=== PATIENT | male | born 1995 | race Caucasian/White ===

== ENCOUNTER 2017-02-16 19:45 | Emergency (ER) | payer OTHER ==
[2017-02-16 20:04] VITALS: BP 136/81; PULSE 89; TEMP 98.4; BMI 26.6
--- NOTE | 2017-02-16 23:37 | PDOC ---
History of Present Illness - General Chief Complaint: Pain Stated Complaint: LT SIDE LOWER ABD PAIN Time Seen by Provider: 02/16/17 22:36 History Source: Patient Exam Limitations: No Limitations - History of Present Illness Travel History: No Initial Comments: 02/16/17 23:43 21-year-old male presents to the emergency department complaining of left-sided groin pain 3 days after lifting a heavy object. Patient says he had a left- sided inguinal hernia which was repaired 10 years ago back in the [place]. Timing/Duration: reports: intermittent Quality: reports: dullness Abdominal Pain Onset Location: reports: suprapubic (left) Pain Radiation: reports: no radiation Past History - Past Medical History Allergies/Adverse Reactions: Allergies Allergy/AdvReac Type Severity Reaction Status Date / Time ampicillin Allergy Verified 02/16/17 20:00 - Psycho/Social/Smoking Cessation Hx Suicidal Ideation: No Smoking History: Never smoked *Physical Exam - Vital Signs Last Vital Signs Temp Pulse Resp BP Pulse Ox 98.4 F 89 18 136/81 99 02/16/17 20:00 02/16/17 20:00 02/16/17 20:00 02/16/17 20:00 02/16/17 20:00 ED Treatment Course - RADIOLOGY Radiograph Interpretation: 02/17/17 01:26 Normal appearance of both testes. Epididymal cysts noted on the right. Otherwise normal appearance of both epididymitis. Normal vascular flow seen bilaterally. Trace right hydrocele. Small pocket of fluid noted on the left. No varicocele. *DC/Admit/Observation/Transfer Diagnosis at time of Disposition: Lt groin pain, Hydrocele in adult - Discharge Dispostion Disposition: HOME Condition at time of disposition: Stable Admit: No - Referrals Referrals: Minh Hassan MD [Primary Care Provider] - - Patient Instructions Printed Discharge Instructions: DI for Hydrocele-Adult, DI for Groin Strain Additional Instructions: Tylenol/Motrin as needed for pain Rest Avoid heavy lifting Follow up with the Urologist Return to the ER for severe/persistent/worsening symptoms - Post Discharge Activity Work/School Note: Back to Work
== END 2017-02-17 01:44 | disposition home or self-care (01) ==
LOC: JER 19:45
DX: S39.011A Strain of muscle, fascia and tendon of abdomen, initial encounter (principal); N43.3 Hydrocele, unspecified; X50.0XXA Overexertion from strenuous movement or load, initial encounter; X50.9XXA Other and unspecified overexertion or strenuous movements or postures, initial encounter; Y93.89 Activity, other specified; Y92.89 Other specified places as the place of occurrence of the external cause
CPT/HCPCS: 76870-TC; 99281-25

== ENCOUNTER 2017-06-25 17:11 | Inpatient (IN) | payer OTHER ==
[2017-06-25 17:17] VITALS: BMI 26.6
[2017-06-25] MEDS ORDERED: ONDANSETRON 4 MG/2 ML VIAL IVPB ONE (19:34)
[2017-06-25] MEDS ORDERED: FAMOTIDINE 20 MG/50 ML IVPB 50 ML IVPB ONE ×2 (19:34→20:05)
[2017-06-25] MEDS ORDERED: SODIUM CHLORIDE 1,000 ML IV STA (19:34)
--- NOTE | 2017-06-25 19:39 | PDOC ---
History of Present Illness - General Chief Complaint: Pain, Acute Stated Complaint: PAIN, ACUTE Time Seen by Provider: 06/25/17 18:48 History Source: Patient - History of Present Illness Initial Comments: 06/25/17 19:34 22-year-old male complaining of vomiting more than 10 times and diarrhea today. Patient reports eating outside yesterday. Patient reports generalized abdominal pain. Denies headache, chest pain, shortness of breath, urinary symptoms. No past medical history ALLERGIES to penicillin Past History - Past Medical History Allergies/Adverse Reactions: Allergies Allergy/AdvReac Type Severity Reaction Status Date / Time ampicillin Allergy Verified 06/25/17 17:14 Home Medications: Ambulatory Orders NK [No Known Home Medication] 06/25/17 Other medical history: Denies - Surgical History Other Surgical History: 06/26/17 00:57 left inguinal hernia repair - Immunization History Immunization Up to Date: Yes - Suicide/Smoking/Psychosocial Hx Smoking History: Never smoked Have you smoked in the past 12 months: No Information on smoking cessation initiated: No Hx Alcohol Use: No Drug/Substance Use Hx: No Substance Use Type: Alcohol Review of Systems - Review of Systems Able to Perform ROS?: Yes Is the patient limited [place] proficient: No Constitutional: No: Symptoms Reported, See HPI, Chills, Diaphoresis, Fever, Loss of Appetite, Malaise, Night Sweats, Weakness, Weight Stable, Unintentional Wgt. Loss, Unexplained wgt Loss, Other Respiratory: No: Symptoms reported, See HPI, Cough, Orthopnea, Shortness of Breath, SOB with Exertion, SOB at Rest, Stridor, Wheezing, Productive cough, Hemoptysis, Other Cardiac (ROS): No: Symptoms Reported, See HPI, Chest Pain, Edema, Irregular Heart Rate, Lightheadedness, Palpitations, Syncope, Chest Tightness, Other ABD/GI: Yes: Diarrhea, Nausea, Vomiting, Abdominal cramping. No: Symptoms Reported, See HPI, Abdominal Distended, Abd. Pain w/ defecation, Blood Streaked Bowels, Constipated, Difficulty Swallowing, Poor Appetite, Poor Fluid Intake, Rectal Bleeding, Indigestion, Tarry Stools, Other : No: Symptoms Reported, See HPI, Burning, Dysuria, Discharge, Frequency, Flank Pain, Hematuria, Incontinence, Pain, Urgency, Testicular Mass, Testicular Swelling, Lesions, Testicular Pain, Other *Physical Exam - Vital Signs Last Vital Signs Temp Pulse Resp BP Pulse Ox 97.8 F 93 H 14 130/87 97 06/25/17 17:14 06/25/17 17:14 06/25/17 17:14 06/25/17 17:14 06/25/17 17:14 - Physical Exam General Appearance: Yes: Appropriately Dressed Respiratory/Chest: positive: Lungs Clear, Normal Breath Sounds Cardiovascular: positive: Regular Rhythm, Regular Rate Gastrointestinal/Abdominal: positive: Normal Bowel Sounds, Tender (mild RLQ tenderness), Soft Integumentary: positive: Normal Color, Dry, Warm Neurologic: positive: Fully Oriented, Alert ED Treatment Course - LABORATORY CBC & Chemistry Diagram: 06/25/17 20:12 06/25/17 20:12 Progress Note - Progress Note Progress Note: A: abdominal pain / gastroenteritis vs appendicitis? P: CBC CMP UA IVF Zofran Pepcid reevaluate Medical Decision Making - Medical Decision Making 06/25/17 21:35 continues with RLQ pain. will CT to rule out acute appendicitis. 06/26/17 00:43 CTAP: acute appendicitis 06/26/17 00:47 06/26/17 01:22 Dr. hoffman paged x2. will give ceftriaxone/ flagyl. patient signed out Dr. Kirkpatrick / Jerri for further management of care. *DC/Admit/Observation/Transfer Diagnosis at time of Disposition: Appendicitis Qualifiers: Appendicitis type: acute appendicitis Acute appendicitis type: unspecified acute appendicitis type Qualified Code(s): K35.80 - Unspecified acute appendicitis - Discharge Dispostion Admit: Yes - Referrals Referrals: Minh Hassan MD [Primary Care Provider] -
[2017-06-25] MEDS ORDERED: ONDANSETRON 4 MG/2 ML VIAL ONE (20:05)
[2017-06-25 20:24] LABS: BASOPHIL 0.1 % (0-2.0); MCH 25.7 pg (25.7-33.7); MCHC 33.4 g/dl (32.0-35.9); MEAN CELL VOLUME 77.1 fl (80-96); MEAN PLT VOLUME 8.1 fl (7.5-11.1); PLATELET COUNT 260 K/MM3 (134-434); RDW 13.5 % (11.9-15.9); WHITE BLOOD COUNT 16.8 K/mm3 (4.0-10.0)
[2017-06-25 20:35] LABS: URINE APPEARANCE CLOUDY; URINE BILIRUBIN NEGATIVE (NEGATIVE); URINE BLOOD NEGATIVE (NEGATIVE); URINE COLOR AMBER; URINE GLUCOSE (UA) NEGATIVE (NEGATIVE); URINE KETONE 2+ (NEGATIVE); URINE LEUK ESTERASE NEGATIVE (NEGATIVE); URINE NITRITE NEGATIVE (NEGATIVE); URINE UROBILINOGEN NEGATIVE mg/dL (0.2-1.0)
[2017-06-25 20:37] LABS: URINE PROTEIN 2+ (NEGATIVE)
[2017-06-25 20:41] LABS: URINE MUCUS MANY; URINE RBC 1 /hpf (0-3); URINE WBC 2 /hpf (3-5)
[2017-06-25] MEDS ORDERED: SODIUM CHLORIDE 0.9% 500 ML INFUS.BAG IV ONE (21:36)
[2017-06-25 21:39] LABS: ALBUMIN 4.5 g/dl (3.4-5.0); ALK PHOS 129 U/L (45-117); ANION GAP 7 (8-16); BILIRUBIN,TOTAL 0.5 mg/dL (0.2-1.0); CALCIUM 9.4 mg/dL (8.5-10.1); CO2 30 mmol/L (21-32); GLUCOSE,RANDOM 107 mg/dL (74-106); SGOT/AST 17 U/L (15-37); SGPT/ALT 28 U/L (12-78); TOT PROT 8.1 g/dl (6.4-8.2)
[2017-06-26] MEDS ORDERED: DEXTROSE 5%-0.45% SALINE 1,000 ML IV SCH (01:00)
--- NOTE | 2017-06-26 01:12 | PN ---
Teaching Attending Note Name of Resident: [place]l ATTENDING PHYSICIAN STATEMENT I saw and evaluated the patient. I reviewed the resident's note and discussed the case with the resident. I agree with the resident's findings and plan as documented. SUBJECTIVE: 22 yo m with no pmhx. who presents with vomting >10X and diarrhea. States his abdominal pain is diffuse. No chest pain, pressure or shortness of breath, OBJECTIVE: Physical: VS: Vital Signs Period Temp Pulse Resp BP Sys/Miranda Pulse Ox Last 24 Hr 97.8 F 93 14 130/87 97 Upon my Exam HR 112, Febrile 101 Tm GEN: NAD, resting in bed HEENT: NCAT, PERRL, Throat without erythema or exudates CARD: Stach RRR S1, S2 RESP: CTAB ABD: BSx4, TTP RLQ, NON- Distended EXT: - C/C/E CBCD WBC 16.8 K/mm3 (4.0-10.0) H 06/25/17 20:12 RBC 5.62 M/mm3 (4.00-5.60) H 06/25/17 20:12 Hgb 14.4 GM/dL (11.7-16.9) 06/25/17 20:12 Hct 43.3 % (35.4-49) 06/25/17 20:12 MCV 77.1 fl (80-96) L 06/25/17 20:12 MCHC 33.4 g/dl (32.0-35.9) 06/25/17 20:12 RDW 13.5 % (11.9-15.9) 06/25/17 20:12 Plt Count 260 K/MM3 (134-434) 06/25/17 20:12 MPV 8.1 fl (7.5-11.1) 06/25/17 20:12 CMP Sodium 136 mmol/L (136-145) 06/25/17 20:12 Potassium 4.4 mmol/L (3.5-5.1) 06/25/17 20:12 Chloride 99 mmol/L (98-107) 06/25/17 20:12 Carbon Dioxide 30 mmol/L (21-32) 06/25/17 20:12 Anion Gap 7 (8-16) L 06/25/17 20:12 BUN 8 mg/dL (7-18) 06/25/17 20:12 Creatinine 1.0 mg/dL (0.7-1.3) 06/25/17 20:12 Creat Clearance w eGFR > 60 (>60) 06/25/17 20:12 Random Glucose 107 mg/dL (74-106) H 06/25/17 20:12 Calcium 9.4 mg/dL (8.5-10.1) 06/25/17 20:12 Total Bilirubin 0.5 mg/dL (0.2-1.0) 06/25/17 20:12 AST 17 U/L (15-37) 06/25/17 20:12 ALT 28 U/L (12-78) 06/25/17 20:12 Alkaline Phosphatase 129 U/L (45-117) H 06/25/17 20:12 Total Protein 8.1 g/dl (6.4-8.2) 06/25/17 20:12 Albumin 4.5 g/dl (3.4-5.0) 06/25/17 20:12 CT AP- Acute Appendicitis ASSESSMENT AND PLAN: 22 M with no pmhx who presents with abdominal pain, found to have sepsis secondary to acute Appendicitis 1.) Sepsis most likley due to Acute appendicitis/acute gastro/c.diff - NPO - Mejia cx, Repeat LA - C.Diff/Stool cx - IVF - Ceftriaxone/Flagyl given in ED, can switch to Zosyn tomorrow (Pt. States he has NO PCN allergy) - Sx consult - Coags/cbc - EKG/CXR 2.) Dvt Ppx - Low Risk - Scd Place in Med-Sx
[2017-06-26] MEDS ORDERED: METRONIDAZOLE 500 MG PREMIXED 100 ML IVPB ONE (01:22)
[2017-06-26] MEDS ORDERED: CEFTRIAXONE 1,000 MG in DEXTROSE 5%-WATER - 50 ML IVPB ONE (01:22)
--- NOTE | 2017-06-26 01:28 | HP ---
Admitting History and Physical - Admission History of Present Illness: 22yo M with no significant PMH presents c/o diffuse abdominal pain x 1 day. Patient in usualy state of health until this morning when he started experiencing 8/10 LLQ ABD which then moved to the periumbilical region eventually the RLQ started to become painful and that is where the pain has stayed. Pain is worse when he moves such as during the vare ride to the hospital. Pt denies ever having symptoms like this before. Patient reports fevers & chills. CTAP in ED notable for acute appendicitis History Source: Patient Limitations to Obtaining History: No Limitations - Past Medical History Additional Past Medical History: denies - Smoking History Smoking history: Never smoked Have you smoked in the past 12 months: No - Alcohol/Substance Use Hx Alcohol Use: No Home Medications - Allergies Allergies/Adverse Reactions: Allergies Allergy/AdvReac Type Severity Reaction Status Date / Time ampicillin Allergy Verified 06/25/17 17:14 - Home Medications Home Medications: Ambulatory Orders NK [No Known Home Medication] 06/25/17 Review of Systems - Review of Systems Constitutional: reports: Chills, Fever, Loss of Appetite Eyes: reports: No Symptoms HENT: reports: No Symptoms Neck: reports: No Symptoms Cardiovascular: reports: No Symptoms Respiratory: reports: No Symptoms Gastrointestinal: reports: Abdominal Pain, Diarrhea, Nausea, Vomiting Genitourinary: reports: No Symptoms Physical Examination Vital Signs: Vital Signs Temperature 97.8 F 06/25/17 17:14 Pulse Rate 93 H 06/25/17 17:14 Respiratory Rate 14 06/25/17 17:14 Blood Pressure 130/87 06/25/17 17:14 O2 Sat by Pulse Oximetry (%) 97 06/25/17 17:14 Constitutional: Yes: Well Nourished, No Distress, Calm Eyes: Yes: Conjunctiva Clear HENT: Yes: Atraumatic, Normocephalic Neck: Yes: Trachea Midline Cardiovascular: Yes: Tachycardia, S1, S2 Respiratory: Yes: CTA Bilaterally Gastrointestinal: Yes: Soft, Tenderness (RLQ and epigastrium no rebound + Rovsings negative psoas sign or obturator sign) Edema: No Integumentary: Yes: Other (skin was hot to touch) Neurological: Yes: Alert, Oriented Labs: CBC, BMP 06/25/17 20:12 06/25/17 20:12 Imaging - Results Cat Scan: Image Reviewed Assessment/Plan 22M with abdominal pain found to have acute appendicitis Problem list: Acute appendicitis Sepsis Plan: Admit to med/surg surgery consult ceftriaxone/flagyl Surgery consult NPO IVF lactic acid antipyretics stool cultures ova and parasites c diff patient unsure about PCN allergy consider zosyn in AM Case discussed with attending and admitting international sourcing manager Full H&P to follow Visit type - Emergency Visit Emergency Visit: Yes ED Registration Date: 06/26/17 Care time: The patient presented to the Emergency Department on the above date and was hospitalized for further evaluation of their emergent condition. - New Patient This patient is new to me today: Yes Date on this admission: 06/26/17 - Critical Care Critical Care patient: No
[2017-06-26] MEDS ORDERED: SODIUM CHLORIDE 1,000 ML IV STA (01:42)
[2017-06-26] MEDS ORDERED: CEFTRIAXONE 50 ML ONE (01:44)
[2017-06-26] MEDS ORDERED: SODIUM CHLORIDE 1,000 ML IV SCH (01:45)
[2017-06-26 02:09] LABS: INR 1.47 (0.82-1.09); PROTHROMBIN TIME (PATIENT) 16.3 SEC (9.98-11.88)
[2017-06-26 02:11] LABS: ACTIVATED PTT 33.4 SECONDS (26.9-34.4)
--- NOTE | 2017-06-26 02:38 | HP ---
CHIEF COMPLAINT: abdominal pain PCP: Dr. Juan Carlos Reilly HISTORY OF PRESENT ILLNESS: 22yo M with no significant PMH presents c/o diffuse abdominal pain x 1 day. Pain started this morning in LLQ, moved to RLQ and periumbilical area. Pt took Peptobismol which did not relieve the pain. Pain is worse with movement. Pain is constant, currently rated 8/10. Pt denies ever having symptoms like this before. Pt reports 4 episodes of nbnb vomiting this morning and 6 episodes of watery diarrhea throughout the day. Pt also reports subjective fever. Pt denies chest pain, palpitations, sob. ER course was notable for: (1) Zofran, Pepcid, NS 1 L bolus x 2 (2) Flagyl, Ceftriaxone (3) Ab/Pelvis CT - suggesting acute appendicitis PAST MEDICAL HISTORY: denies PAST SURGICAL HISTORY: Left inguinal hernia repair 10 yrs ago Social History: Smoking: never Alcohol: denies Drugs: denies Family History: several family members have had appendectomies Allergies ampicillin Allergy (Verified 06/25/17 17:14) HOME MEDICATIONS: Home Medications Medication Instructions Recorded NK [No Known Home Medication] 06/25/17 REVIEW OF SYSTEMS CONSTITUTIONAL: Present: fever Absent: chills, diaphoresis, generalized weakness, malaise, loss of appetite, weight change HEENT: Absent: rhinorrhea, nasal congestion, visual changes CARDIOVASCULAR: Absent: chest pain, palpitations, irregular heart rate, lightheadedness, peripheral edema RESPIRATORY: Absent: cough, shortness of breath, wheezing, stridor GASTROINTESTINAL: Present: abdominal pain, vomiting and diarrhea resolved Absent: abdominal distension, nausea, constipation, melena, hematochezia GENITOURINARY: Absent: dysuria, frequency, urgency, hesitancy SKIN: Absent: rash, itching, pallor HEMATOLOGIC/IMMUNOLOGIC: Absent: easy bleeding, easy bruising NEUROLOGIC: Absent: headache, focal weakness or paresthesias, dizziness, unsteady gait PHYSICAL EXAMINATION Last Vital Signs Temp Pulse Resp BP Pulse Ox 97.8 F 93 H 14 130/87 97 06/25/17 17:14 06/25/17 17:14 06/25/17 17:14 06/25/17 17:14 06/25/17 17:14 GENERAL: Awake, alert, and fully oriented, in mild distress. HEAD: Normal with no signs of trauma. EYES: Extraocular movements intact, sclera anicteric, conjunctiva clear. No lid lag. EARS, NOSE, THROAT: Moist mucous membranes. NECK: Normal range of motion, supple, trachea midline. LUNGS: Breath sounds equal, clear to auscultation bilaterally. No wheezes, and no crackles. No accessory muscle use. HEART: Regular rhythm, tachycardia, normal S1 and S2 without murmur, rub or gallop. ABDOMEN: diffuse tenderness to palpation, + McBurney's sign, -rebound, -psoas sign. Soft, not distended, normoactive bowel sounds, no guarding, MUSCULOSKELETAL: Normal range of motion at all joints. No bony deformities or tenderness. LOWER EXTREMITIES: Warm, well-perfused. No calf tenderness. No peripheral edema. NEUROLOGICAL: Normal speech. Normal gait. PSYCHIATRIC: Cooperative. Good eye contact. Appropriate mood and affect. SKIN: Warm, dry, normal turgor, no rashes or lesions noted. Laboratory Last Values WBC 16.8 K/mm3 (4.0-10.0) H 06/25/17 20:12 RBC 5.62 M/mm3 (4.00-5.60) H 06/25/17 20:12 Hgb 14.4 GM/dL (11.7-16.9) 06/25/17 20:12 Hct 43.3 % (35.4-49) 06/25/17 20:12 MCV 77.1 fl (80-96) L 06/25/17 20:12 MCH 25.7 pg (25.7-33.7) 06/25/17 20:12 MCHC 33.4 g/dl (32.0-35.9) 06/25/17 20:12 RDW 13.5 % (11.9-15.9) 06/25/17 20:12 Plt Count 260 K/MM3 (134-434) 06/25/17 20:12 MPV 8.1 fl (7.5-11.1) 06/25/17 20:12 Neutrophils % 88.0 % (42.8-82.8) H 06/25/17 20:12 Lymphocytes % 2.1 % (8-40) L 06/25/17 20:12 Monocytes % 9.8 % (3.8-10.2) 06/25/17 20:12 Eosinophils % 0.0 % (0-4.5) 06/25/17 20:12 Basophils % 0.1 % (0-2.0) 06/25/17 20:12 PT with INR 16.30 SEC (9.98-11.88) H 06/26/17 01:48 INR 1.47 (0.82-1.09) H 06/26/17 01:48 PTT (Actin FS) 33.4 SECONDS (26.9-34.4) 06/26/17 01:48 Sodium 136 mmol/L (136-145) 06/25/17 20:12 Potassium 4.4 mmol/L (3.5-5.1) 06/25/17 20:12 Chloride 99 mmol/L (98-107) 06/25/17 20:12 Carbon Dioxide 30 mmol/L (21-32) 06/25/17 20:12 Anion Gap 7 (8-16) L 06/25/17 20:12 BUN 8 mg/dL (7-18) 06/25/17 20:12 Creatinine 1.0 mg/dL (0.7-1.3) 06/25/17 20:12 Creat Clearance w eGFR > 60 (>60) 06/25/17 20:12 Random Glucose 107 mg/dL (74-106) H 06/25/17 20:12 Calcium 9.4 mg/dL (8.5-10.1) 06/25/17 20:12 Total Bilirubin 0.5 mg/dL (0.2-1.0) 06/25/17 20:12 AST 17 U/L (15-37) 06/25/17 20:12 ALT 28 U/L (12-78) 06/25/17 20:12 Alkaline Phosphatase 129 U/L (45-117) H 06/25/17 20:12 Total Protein 8.1 g/dl (6.4-8.2) 06/25/17 20:12 Albumin 4.5 g/dl (3.4-5.0) 06/25/17 20:12 Lipase 141 U/L (73-393) 06/25/17 20:12 Urine Color Lee Ann 06/25/17 20:15 Urine Appearance Cloudy 06/25/17 20:15 Urine pH 6.0 (5.0-8.0) 06/25/17 20:15 Ur Specific Pandora 1.025 (1.005-1.025) 06/25/17 20:15 Urine Protein 2+ (NEGATIVE) H 06/25/17 20:15 Urine Glucose (UA) Negative (NEGATIVE) 06/25/17 20:15 Urine Ketones 2+ (NEGATIVE) H 06/25/17 20:15 Urine Blood Negative (NEGATIVE) 06/25/17 20:15 Urine Nitrite Negative (NEGATIVE) 06/25/17 20:15 Urine Bilirubin Negative (NEGATIVE) 06/25/17 20:15 Urine Urobilinogen Negative mg/dL (0.2-1.0) 06/25/17 20:15 Urine RBC 1 /hpf (0-3) 06/25/17 20:15 Urine WBC 2 /hpf (3-5) 06/25/17 20:15 Urine Mucus Many 06/25/17 20:15 Blood Type Cancelled 06/26/17 01:48 Antibody Screen Cancelled 06/26/17 01:48 Spec Expiration Date Cancelled 06/26/17 01:48 IMAGIN06/25/17 Ab/Pelvis CT - preliminary reading suggests acute appendicitis 06/26/17 EKG - ordered 06/26/17 CXR - ordered ASSESSMENT/PLAN: 22yo M with no significant PMH presents c/o diffuse abdominal pain admitted with sepsis 2/2 acute appendicitis. 1) sepsis likely 2/2 acute appendicitis - Tmax 101 (on exam), tachycardia, leukocytosis with Left shift - NS @ 125 ml/hr - Tylenol 1,000mg IVPB for fever and pain - Flagyl and Ceftriaxone given - Surgery Consult - npo - perez cultures (blood, urine, stool) - lactic acid, type and screen, coags - f/u CXR - UA (-) for UTI, 2+ protein and 2+ ketones noted likely 2/2 vomiting and diarrhea 2) FEN - Fluids: NS @ 125 ml/hr - Electrolytes: wnl, continue to monitor - Nutrition: npo for surgical intervention 3) DVT Prophylaxis - genevieve SCDs Visit type - Emergency Visit Emergency Visit: Yes ED Registration Date: 06/26/17 Care time: The patient presented to the Emergency Department on the above date and was hospitalized for further evaluation of their emergent condition. - New Patient This patient is new to me today: Yes Date on this admission: 06/26/17 - Critical Care Critical Care patient: No
[2017-06-26] MEDS: ACETAMINOPHEN 1000 MG/100 ML VIAL (NON FORMULARY) IVPB PRN ×2 (02:49→08:23)
[2017-06-26] MEDS ORDERED: HEPARIN NA (PORCINE) 5,000 UNITS/ML 1ML VIAL SQ SCH (06:00)
[2017-06-26] MEDS ORDERED: morphine CARPU-JECT 4 MG/1 ML DISP.SYRIN IVPUSH ONE (06:14)
[2017-06-26] MEDS ORDERED: morphine CARPU-JECT 4 MG/1 ML DISP.SYRIN ONE (06:51)
[2017-06-26 07:34] LABS: MCH 25.4 pg (25.7-33.7); MCHC 33.1 g/dl (32.0-35.9); MEAN CELL VOLUME 76.9 fl (80-96); MEAN PLT VOLUME 8.4 fl (7.5-11.1); PLATELET COUNT 224 K/MM3 (134-434); RDW 13.4 % (11.9-15.9); WHITE BLOOD COUNT 16.2 K/mm3 (4.0-10.0)
[2017-06-26 07:50] LABS: INR 1.51 (0.82-1.09); PROTHROMBIN TIME (PATIENT) 16.8 SEC (9.98-11.88)
[2017-06-26 07:53] LABS: ACTIVATED PTT 34.1 SECONDS (26.9-34.4)
[2017-06-26 07:54] LABS: ALBUMIN 3.7 g/dl (3.4-5.0); ANION GAP 6 (8-16); CALCIUM 8.5 mg/dL (8.5-10.1); CO2 29 mmol/L (21-32); CREATININE 0.9 mg/dL (0.7-1.3); GLUCOSE,RANDOM 95 mg/dL (74-106); MAGNESIUM 1.9 mg/dL (1.8-2.4); PHOSPHOROUS 4.1 mg/dL (2.5-4.9); SGOT/AST 12 U/L (15-37); SGPT/ALT 20 U/L (12-78); TOT PROT 6.7 g/dl (6.4-8.2)
[2017-06-26 07:55] LABS: ALK PHOS 109 U/L (45-117)
--- NOTE | 2017-06-26 08:03 | CONSULT ---
- Consultation REQUESTING PROVIDER: Tate Lopes - General Surgery CONSULT REQUEST: We have been asked to surgically evaluate this patient for abd pain. PCP: Timbo Samayoa MD HPI: Called to erlin 22yo w/ no PMHx presents to [facility] ED w/ c/o LLQ abd pain which radiates toward his RLQ x1 day. Admits to n/v/d. Exhibiting peritoneal signs (pain with movement). Abd CT in ED confirms acute appy. Subjective fever at home. + loss of appetite. Denies chills, diaphoresis. Denies chest pain, syncope, palpitations, irregular heart rate, lightheadedness. Denies cough, SOB or NICHOLE. Denies cough, shortness of breath, dyspnea with exertion. Denies melena or hematochezia. Denies hematuria, flank pain or dysuria. Deneis bladder or bowel incontinence. PMHx: Denies. PSHx: Open inguinal hernia repair as a child. Home Meds: Denies. Allergies: Ampicillin (unknown reaction, states his mother will know and he will call her) ROS: CONSTITUTIONAL: Absent: SEE HPI. generalized weakness, malaise, weight change CARDIOVASCULAR: Absent: SEE HPI. peripheral edema RESPIRATORY: Absent: SEE HPI. wheezing, stridor, hemoptysis GASTROINTESTINAL:Absent: SEE HPI. GENITOURINARY: Absent: SEE HPI. frequency, urgency, hesitancy, genital pain MUSCULOSKELETAL: Absent: myalgia, arthralgia, joint swelling, back pain, neck pain SKIN: Absent: rash, itching, pallor HEMATOLOGIC/IMMUNOLOGIC: Absent: easy bleeding, easy bruising, lymphadenopathy NEUROLOGIC: Absent: headache, focal weakness, paresthesias, dizziness, unsteady gait, seizure, mental status changes, PSYCHIATRIC: Absent: anxiety, depression, suicidal or homicidal ideation, hallucinations. PE: GENERAL: Awake, alert, and fully oriented, in no acute distress. HEAD: NC. AT. EYES: PERRL, sclera anicteric, conjunctiva clear. LUNGS: CTA bilat anteriorly COR: Tachy to 112 ABD: RLQ TTP. + McBurney's. Not distended. No organomegaly. MUSCULOSKELETAL: No CVAT UE: 2+ pulses, warm, well-perfused. No cyanosis. Cap refill <2 seconds. No peripheral edema. LE: 2+ pulses, warm, well-perfused. No calf tenderness. No peripheral edema. NEUROLOGICAL: Normal speech, gait not observed. PSYCH: Cooperative. Good eye contact. Appropriate mood and affect. SKIN: Warm, dry, normal turgor, no rashes or lesions noted. Vital Signs Temperature 98.2 F 06/26/17 06:44 Pulse Rate 112 H 06/26/17 06:44 Respiratory Rate 20 06/26/17 06:44 Blood Pressure 126/66 06/26/17 06:44 O2 Sat by Pulse Oximetry (%) 100 06/26/17 03:45 Lab Results WBC 16.8 K/mm3 (4.0-10.0) H 06/25/17 20:12 RBC 5.62 M/mm3 (4.00-5.60) H 06/25/17 20:12 Hgb 14.4 GM/dL (11.7-16.9) 06/25/17 20:12 Hct 43.3 % (35.4-49) 06/25/17 20:12 MCV 77.1 fl (80-96) L 06/25/17 20:12 MCHC 33.4 g/dl (32.0-35.9) 06/25/17 20:12 RDW 13.5 % (11.9-15.9) 06/25/17 20:12 Plt Count 260 K/MM3 (134-434) 06/25/17 20:12 Sodium 136 mmol/L (136-145) 06/25/17 20:12 Potassium 4.4 mmol/L (3.5-5.1) 06/25/17 20:12 Chloride 99 mmol/L (98-107) 06/25/17 20:12 Carbon Dioxide 30 mmol/L (21-32) 06/25/17 20:12 Anion Gap 7 (8-16) L 06/25/17 20:12 BUN 8 mg/dL (7-18) 06/25/17 20:12 Creatinine 1.0 mg/dL (0.7-1.3) 06/25/17 20:12 Random Glucose 107 mg/dL (74-106) H 06/25/17 20:12 Calcium 9.4 mg/dL (8.5-10.1) 06/25/17 20:12 Blood Type A POSITIVE 06/26/17 03:00 Antibody Screen Negative 06/26/17 03:00 INR 1.47 (0.82-1.09) H 06/26/17 01:48 Problem List - Problems (1) Appendicitis Assessment/Plan: Going to OR today at 10AM for lap appendectomy, informed consent obtained and placed in chart NPO IVF IV ABX Medical optimization After surgery 1. aggressive mobilization 2. Incentive spirometer 3. Clear liquids and advance as toelrated 4. CBC, BMP in AM Above plan discussed with Dr. Lopes and agrees Code(s): K37 - UNSPECIFIED APPENDICITIS Qualifiers: Appendicitis type: acute appendicitis Acute appendicitis type: unspecified acute appendicitis type Qualified Code(s): K35.80 - Unspecified acute appendicitis; K35.80 - Unspecified acute appendicitis Visit type - Case Type Case Type: ED Admission - Emergency Emergency Visit: Yes ED Registration Date: 06/26/17 Care time: The patient presented to the Emergency Department on the above date and was hospitalized for further evaluation of their emergent condition. - New patient This patient is new to me today: Yes Date on this admission: 06/26/17
--- NOTE | 2017-06-26 08:09 | PN ---
Progress Note (short form) - Note Progress Note: Attending Surgeon Pre-Op Patient seen and evaluated; 22 y/o male presented w/ n/v/abdominal pain; w/u reveals acute appendicitis; for lap appendectomy possible open; r/b/t/a's d/w patient and informed consent obtained; concur w/ /p as outlined in consult by IMANI Jenkins. Tate Lopes MD FACS
--- NOTE | 2017-06-26 08:51 | PN ---
Physical Exam: SUBJECTIVE: Patient seen and examined 22yo M with no significant PMH presents c/o diffuse abdominal pain x 1 day. Pain started this morning in LLQ, moved to RLQ and periumbilical area. Pt took Peptobismol which did not relieve the pain. Pain is worse with movement. Pain is constant, currently rated 8/10. Pt denies ever having symptoms like this before. Pt reports 4 episodes of nbnb vomiting this morning and 6 episodes of watery diarrhea throughout the day. Pt also reports subjective fever. Pt denies chest pain, palpitations, sob. OBJECTIVE: Vital Signs Period Temp Pulse Resp BP Sys/Miranda Pulse Ox Last 24 Hr 97.9 F-102.4 F 109-118 17-20 124-127/57-66 100-100 GENERAL: The patient is awake, alert, and fully oriented, in no acute distress. HEAD: Normal with no signs of trauma. EYES: PERRL, extraocular movements intact, sclera anicteric, conjunctiva clear. No ptosis. ENT: Ears normal, nares patent, oropharynx clear without exudates, moist mucous membranes. NECK: Trachea midline, full range of motion, supple. LUNGS: Breath sounds equal, clear to auscultation bilaterally, no wheezes, no crackles, no accessory muscle use. HEART: Regular rate and rhythm, S1, S2 without murmur, rub or gallop. ABDOMEN: Soft, RLQ, LLQ tenderness ,+Mc hanh , nondistended, normoactive bowel sounds, no guarding EXTREMITIES: 2+ pulses, warm, well-perfused, no edema. NEUROLOGICAL: good mentation PSYCH: Normal mood, normal affect. SKIN: Warm, dry, no rashes or lesions noted Laboratory Results - last 24 hr 06/26/17 06/26/17 06/26/17 01:48 01:48 02:30 WBC RBC Hgb Hct MCV MCH MCHC RDW Plt Count MPV PT with INR 16.30 H INR 1.47 H PTT (Actin FS) 33.4 Sodium Potassium Chloride Carbon Dioxide Anion Gap BUN Creatinine Creat Clearance w eGFR Random Glucose Lactic Acid 1.3 Calcium Phosphorus Magnesium Total Bilirubin AST ALT Alkaline Phosphatase Total Protein Albumin Blood Type Cancelled Antibody Screen Cancelled Spec Expiration Date Cancelled 06/26/17 06/26/17 06/26/17 03:00 06:30 06:30 WBC 16.2 H RBC 5.15 Hgb 13.1 Hct 39.6 MCV 76.9 L MCH 25.4 L MCHC 33.1 RDW 13.4 Plt Count 224 MPV 8.4 PT with INR 16.80 H INR 1.51 H PTT (Actin FS) 34.1 Sodium Potassium Chloride Carbon Dioxide Anion Gap BUN Creatinine Creat Clearance w eGFR Random Glucose Lactic Acid Calcium Phosphorus Magnesium Total Bilirubin AST ALT Alkaline Phosphatase Total Protein Albumin Blood Type A POSITIVE Antibody Screen Negative Spec Expiration Date 06/26/17 06:30 WBC RBC Hgb Hct MCV MCH MCHC RDW Plt Count MPV PT with INR INR PTT (Actin FS) Sodium 137 Potassium 3.7 Chloride 102 Carbon Dioxide 29 Anion Gap 6 L BUN 6 L D Creatinine 0.9 Creat Clearance w eGFR > 60 Random Glucose 95 Lactic Acid Calcium 8.5 Phosphorus 4.1 Magnesium 1.9 Total Bilirubin 1.0 D AST 12 L D ALT 20 D Alkaline Phosphatase 109 Total Protein 6.7 Albumin 3.7 Blood Type Antibody Screen Spec Expiration Date Active Medications Generic Name Dose Route Start Last Admin Trade Name Freq PRN Reason Stop Dose Admin Acetaminophen 1,000 mg 06/26/17 01:44 06/26/17 08:23 Ofirmev Injection - IVPB 06/26/17 19:45 1,000 mg Q6H PRN Administration FEVER OR PAIN Metronidazole 100 mls @ 100 mls/hr 06/26/17 10:00 Flagyl 500mg Premixed Ivpb - IVPB Q8H-IV MEKHI Sodium Chloride 1,000 mls @ 125 mls/hr 06/26/17 01:45 06/26/17 03:40 Normal Saline - IV 125 mls/hr ASDIR MEKHI Administration Ceftriaxone Sodium 1 gm/ 50 mls @ 100 mls/hr 06/26/17 10:00 Dextrose IVPB DAILY MEKHI CBC, BMP 06/26/17 06:30 06/26/17 06:30 ASSESSMENT/PLAN: IMAGIN06/25/17 Ab/Pelvis CT - suggests acute appendicitis 06/26/17 EKG - NSR 06/26/17 CXR - NO acute pathology ASSESSMENT/PLAN: 22yo M with no significant PMH presents c/o diffuse abdominal pain admitted with sepsis 2/2 acute appendicitis. 1) sepsis likely 2/2 acute appendicitis - Tmax 101 (on exam), tachycardia, leukocytosis with Left shift - NS @ 125 ml/hr - Tylenol 1,000mg IVPB for fever and pain - Flagyl and Ceftriaxone given in ED, No Abx needed after surgery - Surgery consulted, operate on him today - npo before surgery,clear liquids post surgery - perez cultures (blood, urine, stool)pending - lactic acid, type and screen, coags - f/u CXR - UA (-) for UTI, 2+ protein and 2+ ketones noted likely 2/2 vomiting and diarrhea - F/U blood culture 2) FEN - Fluids: NS @ 125 ml/hr - Electrolytes: wnl, continue to monitor - Nutrition: npo for surgical intervention, clear liquids po operation 3) DVT Prophylaxis - genevieve SCDs - consider D/C tomorrow if there is no complication and tolerated food normally. Visit type - Emergency Visit Emergency Visit: Yes ED Registration Date: 06/26/17 Care time: The patient presented to the Emergency Department on the above date and was hospitalized for further evaluation of their emergent condition. - New Patient This patient is new to me today: Yes Date on this admission: 06/27/17 - Critical Care Critical Care patient: No
[2017-06-26] MEDS ORDERED: DEXTROSE 5%-WATER - 50 ML IVPB ONE (09:10)
[2017-06-26] MEDS ORDERED: cefTRIAXone SODIUM 1 GM VIAL ONE (09:10)
[2017-06-26] MEDS ORDERED: PROPOFOL 20 ML ONE (09:16)
[2017-06-26] MEDS ORDERED: ROCURONIUM BROMIDE 50 MG/5 ML VIAL ONE (09:18)
[2017-06-26] MEDS ORDERED: ACETAMINOPHEN INJECTION 100 ML IVPB ONE (09:20)
[2017-06-26] MEDS ORDERED: BUPIVACAINE HCL/PF 0.5% (5MG/ML) 10 ML VIAL ONE (09:21)
--- NOTE | 2017-06-26 09:21 | PN ---
Teaching Attending Note Name of Resident: Rylan Dupont ATTENDING PHYSICIAN STATEMENT I saw and evaluated the patient. I reviewed the resident's note and discussed the case with the resident. I agree with the resident's findings and plan as documented. SUBJECTIVE: Patient complains of pain across his lower abdomen. OBJECTIVE: Vital Signs Period Temp Pulse Resp BP Sys/Miranda Pulse Ox Last 24 Hr 97.8 F-102.4 F 93-118 14-20 124-130/57-87 97-100 HEART: S1S2, tachycardic LUNGS: Clear ABDOMEN: Soft, non-distended, (+) LLQ/RLQ/suprapubic tenderness, normal BS EXTREMITIES: No edema Current Medications Generic Name Dose Route Start Last Admin Trade Name Freq PRN Reason Stop Dose Admin Acetaminophen 1,000 mg 06/26/17 01:44 06/26/17 08:23 Ofirmev Injection - IVPB 06/26/17 19:45 1,000 mg Q6H PRN Administration FEVER OR PAIN Metronidazole 100 mls @ 100 mls/hr 06/26/17 10:00 Flagyl 500mg Premixed Ivpb - IVPB Q8H-IV MEKHI Sodium Chloride 1,000 mls @ 125 mls/hr 06/26/17 01:45 06/26/17 03:40 Normal Saline - IV 125 mls/hr ASDIR MEKHI Administration Ceftriaxone Sodium 1 gm/ 50 mls @ 100 mls/hr 06/26/17 10:00 06/26/17 09:13 Dextrose IVPB 100 mls/hr DAILY MEKHI Administration ASSESSMENT AND PLAN: This is a 22 year old man with no significant medical history who presented to the ER complaining of diffuse abdominal pain. 1. Sepsis secondary to acute appendicitis - NPO - Continue Rocephin, Flagyl - Continue IV fluid - Laparoscopic appendectomy planned for today - Follow-up blood cultures
[2017-06-26] MEDS ORDERED: LIDOCAINE HCL/PF 2% SDV 5ML VIAL ONE (09:56)
[2017-06-26] MEDS ORDERED: FLU VACCINE QUAD 60 MCG/0.5 ML (MDV 17-18) IM ONE (10:00)
[2017-06-26] MEDS ORDERED: CEFTRIAXONE 1 GM in DEXTROSE 5%-WATER - 50 ML IVPB SCH (10:00)
[2017-06-26] MEDS ORDERED: METRONIDAZOLE 500 MG PREMIXED 100 ML IVPB SCH (10:00)
[2017-06-26] MEDS ORDERED: GLYCOPYRROLATE 0.2 MG/1 ML VIAL ONE ×2 (10:43→10:44)
[2017-06-26] MEDS ORDERED: NEOSTIGMINE METHYLSULFATE 0.5 MG/ML - 10 ML MDV ONE (10:43)
[2017-06-26] MEDS ORDERED: BUPIVACAINE HCL/PF 0.5% (5MG/ML) 10 ML VIAL IJ ONE (10:50)
--- NOTE | 2017-06-26 11:03 | OP ---
Operative Note - Note: Operative Date: 06/26/17 Pre-Operative Diagnosis: acute appendicitis Operation: laparoscopic appendectomy Findings: acute appendicitis Post-Operative Diagnosis: Same as Pre-op Surgeon: Tate Lopes Incident Commander: Zaria Burgess Anesthesiologist/CLINICAL ORTHOPTIST: Donald Nixon Anesthesia: General Specimens Removed: appendix Estimated Blood Loss (mls): 0 Drains & Tubes with Location: none
--- NOTE | 2017-06-26 11:07 | SURG ---
Surgery Repeat Photocomposing Machine Operator Note Repeat Photocomposing Machine Operator: Zaria Burgess PA-C Date of Service: 06/26/17 Diagnosis: acute appendicitis Procedure: laparoscopic appendectomy I was present for the entirety of the operative procedure. For further detail, please refer to operative report. Visit type - Case Type Case Type: ED Admission - Emergency Emergency Visit: Yes ED Registration Date: 06/26/17 Care time: The patient presented to the Emergency Department on the above date and was hospitalized for further evaluation of their emergent condition. - New patient This patient is new to me today: Yes Date on this admission: 06/26/17 - Critical Care Critical Care patient: No
[2017-06-26] MEDS ORDERED: KETOROLAC TROMETHAMINE 30 MG/1 ML VIAL IVPUSH PRN (11:10)
[2017-06-26] MEDS ORDERED: ACETAMINOPHEN 325 MG TABLET (FP) PO PRN (11:13)
[2017-06-26] MEDS ORDERED: oxyCODONE HCL 5 MG TABLET PO PRN ×3 (11:14→11:19)
[2017-06-26] MEDS ORDERED: LACTATED RINGERS SOLUTION 1,000 ML IV SCH (11:30)
[2017-06-26] MEDS: HEPARIN NA (PORCINE) 5,000 UNITS/ML 1ML VIAL SQ SCH ×2 (14:56→21:31)
[2017-06-26] MEDS: SODIUM CHLORIDE 1,000 ML IV SCH ×2 (14:57→22:58)
--- NOTE | 2017-06-26 19:51 | EKG ---
Test Reason : Blood Pressure : / mmHG Vent. Rate : 120 BPM Atrial Rate : 120 BPM P-R Int : 188 ms QRS Dur : 088 ms QT Int : 294 ms P-R-T Axes : 068 054 035 degrees QTc Int : 415 ms SINUS TACHYCARDIA POSSIBLE LEFT ATRIAL ENLARGEMENT NONSPECIFIC T WAVE ABNORMALITY ABNORMAL ECG NO PREVIOUS ECGS AVAILABLE REPEAT EKG IF CLINICALLY INDICATED Confirmed by SARAH FAUST MD ([id number]) on 06/26/2017 7:50:52 PM Referred By: Confirmed By:SARAH FAUST MD
[2017-06-27] MEDS: HEPARIN NA (PORCINE) 5,000 UNITS/ML 1ML VIAL SQ SCH ×2 (06:19→14:59)
[2017-06-27 06:44] VITALS: BP 114/60; PULSE 103; TEMP 98.7
[2017-06-27] MEDS: SODIUM CHLORIDE 1,000 ML IV SCH (07:20)
[2017-06-27 07:33] LABS: BASOPHIL 0.1 % (0-2.0); EOSINOPHIL 0.7 % (0-4.5); MCH 25.8 pg (25.7-33.7); MCHC 33.3 g/dl (32.0-35.9); MEAN CELL VOLUME 77.5 fl (80-96); MEAN PLT VOLUME 8.4 fl (7.5-11.1); NEUTROPHILS 79.1 % (42.8-82.8); PLATELET COUNT 198 K/MM3 (134-434); RDW 13.5 % (11.9-15.9)
--- NOTE | 2017-06-27 07:58 | PN ---
Progress Note (short form) - Note Progress Note: Anesthesia POD#1 S/P LAP Appendectomy under GA VSS,mild sore throat,no N/V,pain is under control. No complications to anesthesia seen. Kendra Delaney MD.
[2017-06-27 08:17] LABS: ANION GAP 6 (8-16); CALCIUM 8.4 mg/dL (8.5-10.1); CO2 29 mmol/L (21-32); CREATININE 0.8 mg/dL (0.7-1.3); GLUCOSE,RANDOM 80 mg/dL (74-106)
--- NOTE | 2017-06-27 08:34 | PN ---
Progress Note (short form) - Note Progress Note: Attending Surgeon POD #1 Voided; tolerated liquids; no pain VSS AF abdomen-soft;port site tenderness; port sites c/d/i; o/w negative WBC this AM wnl. IMP: doing well PLAN: Advance diet; OOB; d/c home later today w/ office f/u 7-10 days. Tate Lopes MD FACS
--- NOTE | 2017-06-27 08:49 | DS ---
Physical Exam: SUBJECTIVE: Patient seen and examined OBJECTIVE: Vital Signs Period Temp Pulse Resp BP Sys/Miranda Pulse Ox Last 24 Hr 98.2 F-98.7 F 94-104 16-20 112-152/50-78 96-100 PHYSICAL EXAM GENERAL: The patient is awake, alert, and fully oriented, in no acute distress. HEAD: Normal with no signs of trauma. EYES: PERRL, extraocular movements intact, sclera anicteric, conjunctiva clear. ENT: Ears normal, nares patent, oropharynx clear without exudates, moist mucous membranes. NECK: Trachea midline, full range of motion, supple. LUNGS: Breath sounds equal, clear to auscultation bilaterally, no wheezes, no crackles, no accessory muscle use. HEART: Regular rate and rhythm, S1, S2 without murmur, rub or gallop. ABDOMEN: Soft, nontender, nondistended, normoactive bowel sounds, no guarding, no rebound, no hepatosplenomegaly, no masses. EXTREMITIES: 2+ pulses, warm, well-perfused, no edema. NEUROLOGICAL: Cranial nerves II through XII grossly intact. Normal speech, gait not observed. PSYCH: Normal mood, normal affect. SKIN: Warm, dry, normal turgor, no rashes or lesions noted. LABS Laboratory Results - last 24 hr 06/27/17 06/27/17 07:20 07:20 WBC 10.0 D RBC 4.90 Hgb 12.7 Hct 38.0 MCV 77.5 L MCH 25.8 MCHC 33.3 RDW 13.5 Plt Count 198 MPV 8.4 Neutrophils % 79.1 Lymphocytes % 9.6 D Monocytes % 10.5 H Eosinophils % 0.7 D Basophils % 0.1 Sodium 137 Potassium 3.7 Chloride 102 Carbon Dioxide 29 Anion Gap 6 L BUN 5 L Creatinine 0.8 Random Glucose 80 Calcium 8.4 L HOSPITAL COURSE: Date of Admission:06/26/17 Date of Discharge: 06/27/17 IMAGIN06/25/17 Ab/Pelvis CT - suggests acute appendicitis 06/26/17 EKG - NSR 06/26/17 CXR - NO acute pathology ASSESSMENT/PLAN: Patient is a 22 year old male without any past medical history who presented to the ED with diffuse abdominal pain. He presented with tachycardia, leukocytosis and a max temperature of 101F. He had a positive McBurney's point and a CT scan of the abdomen with signs of acute appendicitis without abscess formation, so he was admitted for sepsis secondary to acute appendicitis. Patient received IV fluids, flagyl, ceftriaxone, tylenol (650 mg PO Q6H PRN) and oxycodone (10 mg PO Q6H PRN) for pain, and surgery was consulted. Patient underwent a laproscopic removal of the appendix on 06/26/17. He tolerated clear liquid diet after his surgery, and tolerated regular diet as well.Patient will be discharged on his pain medication Tylenol or Ibuprofen. He was asked to follow up with Dr. Lopes (surgeon) and Dr. Hassan (PCP) within a week of discharge. Minutes to complete discharge: 30 Discharge Summary Reason For Visit: APPENDICITIS Current Active Problems Appendicitis (Acute) Condition: Stable - Instructions Diet, Activity, Other Instructions: Dr. Lopes Discharge Instructions Dear ALICIA MIRZA, Post Operative Instructions Physical activity Resume your normal everyday activity as tolerated no heavy lifting or exercise until seen by your surgeon. You may walk unlimited amounts of and climb stairs. You may resume driving the car when you feel safe and comfortable behind the wheel. Wound care If you have a bandage, leave it on, and keep dry for 48 - 72 hours. After that time discard the outer bandage. If there are tapes on the skin under the outer bandage, leave them in place. They will peel off in the next 7 to 10 days. Do Not peel them off. You may shower 2 days after surgery. If there are tapes present on the skin, they can get wet. Diet There are no dietary restrictions. Eat healthy, high-fiber foods. Drink 6 to 8 glasses of liquid each day. This will assist in keeping your bowels are regular. Pain management You may take Tylenol or acetaminophen or Ibuprofen (for example, Motrin, Advil etc.) Any pain prescription medication ordered should be taken as prescribed for moderate to severe pain. Call Dr. Lopes for any of the following: Severe pain not relieved by medication Fever of 101 or higher Excessive bleeding or drainage on dressing Inability to urinate Call the office at [phone] for a post operative appointment in 7 - 10 days. Please take your medication as prescribed. Avoid carrying heavy objects for the next 14 days if you feel any fever, chills, or your symptoms worsen come back to the emergency department please make sure to have bowel movement daily. you have been admitted for appendicitis and laparoscopic procedure was done to take it out. No antibiotics is needed, just use the pain killer as needed and follow up with your primary care physician within one week. Referrals: Tate Lopes MD [Staff Physician] - 1 Week Minh Hassan MD [Primary Care Provider] - 1 Week Disposition: HOME - Home Medications Comprehensive Discharge Medication List: Ambulatory Orders NK [No Known Home Medication] 06/25/17 This patient is new to me today: No Emergency Visit: Yes ED Registration Date: 06/26/17 Care time: The patient presented to the Emergency Department on the above date and was hospitalized for further evaluation of their emergent condition. Critical Care patient: No - Discharge Referral Referred to [facility] Med P.C.: No
--- NOTE | 2017-06-27 10:42 | OP ---
DATE OF OPERATION: 06/26/2017 PREOPERATIVE DIAGNOSIS: Acute appendicitis. POSTOPERATIVE DIAGNOSIS: Acute appendicitis. PROCEDURE: Laparoscopic appendectomy. SURGEON: Tate Hanson MD ANIMAL SHELTER MANAGER: Zaria Burgess PA-C ANESTHESIA: General. OPERATIVE FINDINGS: Acute suppurative appendicitis. The rest of the findings were unremarkable. DESCRIPTION OF PROCEDURE: The patient was placed on the operating table in supine position, and after the induction of general anesthesia, the patients abdomen was prepped with ChloraPrep and draped in sterile fashion. Pneumoperitoneum was established above the umbilicus using a Veress needle to a pressure of 15 mmHg. A 5-mm port was then placed, and laparoscopy carried out, and the previously noted findings were observed. An additional 12-mm suprapubic port and a left lower quadrant 5-mm port were placed. The appendix identified in the right lower quadrant and the small bowel that was adherent to it was bluntly dissected off without incident. The appendix was then grasped, and the mesoappendix serially divided using the LigaSure device. Once cleared down to its base, a 45-mm blue Endo MYNOR was fired across the base of the appendix. The appendix was placed in a specimen retrieval bag and brought out through the suprapubic port. Pneumoperitoneum was reestablished , and there was no evidence of bleeding from the suture line at the base of the cecum , and the rest of the findings at that point were unremarkable. All ports were removed under laparoscopic vision without evidence of bleeding from the port sites. The pneumoperitoneum was evacuated, and the defect at the suprapubic area was closed with a single 0 Vicryl figure-of-8 suture. Marcaine 0.5% was infiltrated into the port sites and the skin edges approximated with 4-0 Monocryl in a subcuticular continuous fashion. Steri-Strips and Band-Aid dressings were placed. The procedure was terminated at this point, and the patient aroused from general anesthesia and transferred to the post-anesthesia care unit in stable condition, awake and alert. ESTIMATED BLOOD LOSS: 10 mL. REPLACEMENTS: Crystalloid. DRAINS: None. SPECIMENS: Appendix to Pathology. I, Tate Lopes, was physically present in the operating room from the time the patient was placed on the operating table until he was transferred to the post-anesthesia care unit in my accompaniment. MD CARISSA Fletcher/[id number] MTDD
--- NOTE | 2017-06-27 11:55 | PN ---
Teaching Attending Note Name of Resident: Rylan Dupont ATTENDING PHYSICIAN STATEMENT I saw and evaluated the patient. I reviewed the resident's note and discussed the case with the resident. I agree with the resident's findings and plan as documented. SUBJECTIVE:states pain is controlled. no pain when eating this AM. +flatus. denies Cp, SOB, fever, chills, N/V/C/D. no BM since surgery OBJECTIVE: Last Vital Signs Temp Pulse Resp BP Pulse Ox 98.7 F 103 H 17 114/60 98 06/27/17 06:43 06/27/17 06:43 06/27/17 09:00 06/27/17 06:43 06/27/17 09:00 General NAD CV S1 S2 tachycardic Lungs CTA B/L no wheezing/rales/rhonchi abdomen soft mildly tender around surgical incision sites. bandages dry and intact +BS ASSESSMENT AND PLAN: 22 yo M with no PMH presented to the ER complaining of diffuse abdominal pain. 1. Sepsis secondary to acute appendicitis- s/p laprascopic appendectomy 06/26. tolerating liquid diet. will advance to regular diet can d/c home. no indication for abx at this time. will need to follow up with surgeon in 1 week. advised on risk of percocet can be drowsy and cause constipation. answered all questions. verbalized understanding and agreement with plan.
--- NOTE | 2017-06-27 12:57 | PATH ---
Surgical Pathology Report Patient Name: ALICIA ENCINAS Med. Rec. #: [id number] /Age/Gender: 1995 (Age: 22) / M Account: [id number] Location: [facility] MED/SURG Taken: 06/26/2017 Received: 06/26/2017 Reported: 06/27/2017 Physicians: Tate Lopes MD Specimen(s) Received APPENDIX Clinical History Appendicitis Final Diagnosis APPENDIX, APPENDECTOMY: MARKED ACUTE APPENDICITIS AND PERIAPPENDICITIS. Electronically Signed Griffin Hamilton M.D. Gross Description Received in formalin, labeled "appendix" is a 9 cm in length vermiform appendix with a stapled margin of resection and moderate attached fat. The serosa is zepeda-purple with attached exudate. Sectioning reveals a dilated, hemorrhagic lumen containing a focal brown fecalith. The wall of the appendix averages 0.1 cm in thickness. Personal Security Specialist sections are submitted in one cassette. /06/26/2017 saudi/06/26/2017
== END 2017-06-27 15:00 | disposition home or self-care (01) | DRG 710 ==
LOC: JERFT 17:11 → JERBED 06-26 01:31 → J8W 06-26 03:39
PROVIDERS: ADMIT Internal Medicine; ATTEND Internal Medicine
PROC: 0DTJ4ZZ Resection of Appendix, Percutaneous Endoscopic Approach (ICD-10-PCS; principal; 2017-06-26 09:00)
DX: A41.9 Sepsis, unspecified organism (principal); K35.89 Other acute appendicitis; R00.0 Tachycardia, unspecified; D72.828 Other elevated white blood cell count; R11.10 Vomiting, unspecified; R50.9 Fever, unspecified; A08.8 Other specified intestinal infections
CPT/HCPCS: 36415; 71020-TC; 74177-TC; 80048; 80053; 81003; 81015; 83605; 83690; 83735; 84100; 85025; 85027; 85610; 85730; 86850; 86900; 86901; 87040; 87086; 88304-TC; 93005; 93010; 94760; 99282-25; J1644

== ENCOUNTER 2021-01-28 20:36 | Emergency (ER) | payer OTHER ==
[2021-01-28 20:43] VITALS: BMI 29.9
[2021-01-28] MEDS ORDERED: IBUPROFEN 600 MG TABLET (FP) PO ONE ×2 (21:19→21:21)
[2021-01-28] MEDS ORDERED: MAG HYDROX/AL HYDROX/SIMETH 30 ML UNIT-DOSE CUP PO ONE (21:21)
[2021-01-28] MEDS ORDERED: MAG HYDROX/AL HYDROX/SIMETH 30 ML UNIT-DOSE CUP ONE (21:21)
[2021-01-28 21:43] LABS: BASO % 0.4 % (0-2.0); EOS % 1.7 % (0-4.5); HEMATOCRIT 40.8 % (35.4-49); HEMOGLOBIN 13.6 GM/dL (11.7-16.9); LYMPH % 30.5 % (8-40); MCH 26.1 pg (25.7-33.7); MCHC 33.3 g/dl (32.0-35.9); MEAN CELL VOLUME 78.6 fl (80-96); MEAN PLT VOLUME 8.2 fl (7.5-11.1); MONO % 8.3 % (3.8-10.2); NEUT % 59.1 % (42.8-82.8); PLATELET COUNT 248 K/MM3 (134-434); RDW 13.4 % (11.9-15.9); WHITE BLOOD COUNT 4.8 K/mm3 (4.0-10.0)
[2021-01-28 22:15] LABS: ALBUMIN 4.2 g/dl (3.4-5.0); ALK PHOS 114 U/L (45-117); ANION GAP 3 MMOL/L (8-16); BILIRUBIN,TOTAL 0.3 mg/dL (0.2-1); CALCIUM 8.7 mg/dL (8.5-10.1); CHLORIDE 106 mmol/L (98-107); CO2 31 mmol/L (21-32); GLUCOSE,RANDOM 100 mg/dL (74-106); SGOT/AST 27 U/L (15-37); SGPT/ALT 48 U/L (13-61); SODIUM 140 mmol/L (136-145)
[2021-01-28 22:41] VITALS: BP 110/68; PULSE 71; TEMP 98.5
== END 2021-01-28 22:39 | disposition home or self-care (01) ==
LOC: JER 20:36
DX: R07.89 Other chest pain (principal)
CPT/HCPCS: 36415; 71046-TC-FY; 80053; 82550; 82553; 84484; 85025; 93005; 93010; 99285-25